=== PATIENT | female | born 1945 | race Two or more races ===

== ENCOUNTER → 2020-06-23 | Day surgery (SDC) | payer MEDICARE, BC ==
[~2020-06-23] MED LIST: ARIMIDEX1 MG PO; ASPIRIN81 MG PO; CALCET TABLET1 EACH PO; DAILY VALUE1 EACH PO; FENTANYL CITRATE/PF 100MCG/2 ML INJ ONE; LEVOTHYROXINE50 MCG PO; LOSARTAN POTAS100 MG PO; MIDAZOLAM HCL 2 MG/2 ML VIAL ONE; OR PHACO EYE KIT ONE; PREOP PHACO EYE KIT ONE; VITAMIN D250 MC1 PO; VYTORIN 10-101 EACH PO
[2020-06-23 13:34] VITALS: BP 142/78
== END | disposition home or self-care (01) ==
LOC: OR 15:08
PROVIDERS: ATTEND Ophthalmology
DX: H25.12 Age-related nuclear cataract, left eye (principal); E11.9 Type 2 diabetes mellitus without complications; E78.5 Hyperlipidemia, unspecified; I10 Essential (primary) hypertension; F41.9 Anxiety disorder, unspecified; Z85.3 Personal history of malignant neoplasm of breast; Z92.3 Personal history of irradiation
CPT/HCPCS: 66984; J2250; J3010; V2632

== ENCOUNTER → 2020-07-07 | Day surgery (SDC) | payer MEDICARE, BC ==
[2020-07-07 17:00] VITALS: BP 122/78
== END | disposition home or self-care (01) ==
LOC: OR 12:24
PROVIDERS: ATTEND Ophthalmology
DX: H25.11 Age-related nuclear cataract, right eye (principal); I10 Essential (primary) hypertension; Z79.82 Long term (current) use of aspirin; Z85.3 Personal history of malignant neoplasm of breast; Z92.3 Personal history of irradiation
CPT/HCPCS: 66984; J2250; J3010; V2632